=== PATIENT | female | born 1990 | race Caucasian/White ===

== ENCOUNTER 2024-12-02 13:41 | Emergency (ER) | payer BC, SELFPAY ==
--- NOTE | ~2024-12-02 | CT_ITS ---
CLINICAL HISTORY: flank pain CT abdomen and pelvis without contrast Comparison: None Findings: The lung bases are clear. The gallbladder and solid organs are within normal limits. No renal stones. No bowel obstruction, pneumoperitoneum, or pneumatosis. Pelvic contents unremarkable. Normal appendix. The bones are intact. IMPRESSION: No acute findings. This document has been electronically signed by: Mani Quinones MD on 12/02/2024 21:52:15
[2024-12-02 15:20] VITALS: BP 111/62; PULSE 92; RESP 20; TEMP 36.8; O2SAT 98; BMI 34.6
--- NOTE | 2024-12-02 15:27 | ED_ITS ---
HPI - General Adult General Chief complaint: General Medical Stated complaint: flank pain Time Seen by Provider: 12/02/24 20:07 Source: patient, RN notes reviewed and old records reviewed Mode of arrival: ambulatory Limitations: no limitations History of Present Illness ED Provider: Yamileth BRIAN narrative: 34-year-old otherwise healthy female presenting with a 6 days of bilateral flank pain that is worsening. Patient reports she went to urgent care on Tuesday and that they advised her to come to the emergency department because they were suspicious of kidney stones. Reports the both sides began hurting at the same time. States her pain feels ?internal? versus muscular. Reports nausea, but denies vomiting, fevers, chills, urinary frequency, burning micturition, an abdominal pain. Reports her flank pain currently as a 5/10, states it can get up to an 8/10. Patient reports she has tried Tylenol and ibuprofen with mild improvement. Patient also reports increasing her fluid intake. Denies history of kidney stones Related Data Previous Rx's ?Medication ?Instructions ?Recorded docusate sodium 250 mg capsule 250 mg PO BID PRN constipation #20 12/02/24 caps polyethylene glycol 3350 17 17 g PO DAILY 2 weeks #238 grams 12/02/24 gram/dose oral powder (Miralax) Allergies Allergy/AdvReac Type Severity Reaction Status Date / Time acetaminophen [From Vicodin] Allergy Hives Verified 12/02/24 15:22 hydrocodone [From Vicodin] Allergy Hives Verified 12/02/24 15:22 Review of Systems 2 Constitutional: Constitutional: Denies chills and Denies fever(s) Cardiovascular: Cardiovascular: Denies chest pain and Denies dyspnea Respiratory: Respiratory: Denies cough and Denies dyspnea Gastrointestinal: Gastrointestinal: Denies abdominal pain, Denies constipation, Denies diarrhea, Reports nausea and Denies vomiting Genitourinary: Genitourinary: Denies hematuria, Denies difficulty voiding, Denies dysuria and Reports flank pain (bilateral) [facility] Social History Social History Alcohol intake: current Alcohol intake frequency: holidays/special occasions only Physical Exam ED Vital Signs: Vital Signs - 24 hr 12/02/24 15:20 12/02/24 18:14 12/02/24 19:45 Temperature 98.2 F 98.1 F 98.0 F Pulse Rate 92 82 81 Respiratory Rate 20 20 16 Blood Pressure 111/62 116/64 103/57 L Pulse Oximetry 98 98 100 Oxygen Delivery Method Room Air Room Air Room Air 12/02/24 22:00 12/02/24 22:24 Temperature 98.2 F Pulse Rate 95 95 Respiratory Rate 18 18 Blood Pressure 108/49 L 108/49 L Pulse Oximetry 99 99 Oxygen Delivery Method Room Air Room Air BMI result Body Mass Index 34.6 Const General: cooperative, healthy appearing, comfortable and no acute distress HENMT Head: Yes normocephalic and Yes atraumatic Resp Effort & Inspection: normal respiratory effort and able to speak in complete sentences GI Inspection: No distended Palpation (GI): Soft to palpation and nontender General: Yes CVA tenderness (right side pain > left) bilateral Back/Spine/Pelvis Back: CVA tenderness (right side pain > left) Course Course Course Narrative: RME: 34 yold female sent from urgent care for bilateral flank pain for the past 6 days. patient denies any nausea, or genitourinary symptoms. Positive for bilateral flank pain. Labs UA ordered. Reevaluation(s) Reevaluation #1: Patient's workup was significant for moderate constipation next past can, no obstructive or infectious process there was no obstructive uropathy. I discussed this with the patient, we will start her on MiraLax and Colace. The patient will follow up with the primary doctor Time: 22:06 Medications Administered Discontinued Medications Generic Name Dose Route Start Last Admin Trade Name Freq PRN Reason Stop Dose Admin Sodium Chloride 1,000 mls @ 999 mls/hr 12/02/24 20:30 12/02/24 22:31 Ns IV 12/02/24 21:30 Infused .Q1H1M JOSE LUIS Infusion Ibuprofen 800 mg 12/02/24 17:27 12/02/24 20:06 Ibuprofen 800 Mg Tablet PO 12/02/24 17:28 Not Given ONCE ONE Ketorolac Tromethamine 15 mg 12/02/24 20:21 12/02/24 21:12 Ketorolac Tromethamine 15 Mg/Ml Vial IVPUSH 12/02/24 20:22 15 mg ONCE ONE Administration Ondansetron HCl 4 mg 12/02/24 20:21 12/02/24 21:13 Ondansetron Hcl 4 Mg/2 Ml Vial IVPUSH 12/02/24 20:22 4 mg ONCE ONE Administration Medical Decision Making Medical Decision Making [facility] Narrative: 34-year-old female presents for evaluation of bilateral flank pain for the last 6 days. She does have red blood cells detected in her urine. She has no history of kidney stones, we had a CT scan of the abdomen pelvis to evaluate for obstructive uropathy. Her urinalysis did not show any signs of infection. Also in the differential includes constipation, muscle strain. Toradol, fluids, Zofran in the meantime. Awaiting CT scan Differential Diagnosis Differential Diagnoses: The differential diagnosis associated with the presentation includes Kidney stones Pyelonephritis Constipation Urinary tract infection Muscle strain Lab Data [facility] Lab Attestation statement: I reviewed the patient's lab results. No leukocytosis. The patient has a mild anemia of unclear chronicity. This is a normocytic anemia. The patient is not actively bleeding. No significant chemistry abnormalities. 12/02/24 15:50 12/02/24 15:50 Labs: Lab Results 12/02/24 12/02/24 Range/Units 15:50 17:26 WBC 9.4 (4.8-10.8) X10*3/uL RBC 3.91 L (4.20-5.50) X10*6/uL Hgb 11.5 L (12.0-16.0) g/dl Hct 34.4 L (37.0-47.0) % MCV 88.0 (80.0-98.0) fL MCH 29.4 (27.0-33.0) pg MCHC 33.4 (31.0-35.0) g/dl RDW 12.5 (11.0-16.0) % Plt Count 297 (160-400) X10*3/uL MPV 10.2 (9.4-12.3) fL Immature Gran % (Auto) 1.0 H (0.0-0.4) % Neut % (Auto) 69.7 (45-73) % Lymph % (Auto) 20.6 (20-40) % Tama % (Auto) 6.8 (2-11) % Eos % (Auto) 1.4 (0-4) % Baso % (Auto) 0.5 (0-2) % Lymph # (Auto) 1.9 (1.2-4.9) X10*3/uL Tama # (Auto) 0.6 (0.1-1.2) X10*3/uL Eos # (Auto) 0.1 (0.0-0.4) X10*3/uL Baso # (Auto) 0.1 (0.0-0.2) X10*3/uL Abs Immat Gran (auto) 0.09 H (0.00-0.03) X10*3/uL Absolute Neuts (auto) 6.6 (2.0-8.3) x10*3/uL Absolute Nucleated RBC 0.000 (0.0-0.012) X10*3/uL Nucleated RBC % (auto) 0.0 (0.0-0.2) /100WBC PT 11.7 (10.9-12.4) SEC INR 1.0 (0.9-1.1) APTT 35.6 (26.0-36.8) SEC Sodium 140 (135-145) mmol/L Potassium 4.2 (3.3-5.1) mmol/L Chloride 107 (96-108) mmol/L Carbon Dioxide 26 (22-29) mmol/L Anion Gap 11 L (12-20) BUN 10 (9-16) mg/dL Creatinine 0.86 (0.5-1.4) mg/dL Estim Creat Clear Calc 97.3 Estimated GFR > 60 Random Glucose 94 (60-115) mg/dL Calcium 9.5 (8.4-10.2) mg/dL Total Bilirubin 0.4 (0.0-1.0) mg/dL AST 21 (5-31) U/L ALT 19 (0-31) U/L Alkaline Phosphatase 64 (39-117) U/L Total Protein 7.5 (6.5-8.0) g/dL Albumin 4.4 (3.5-5.0) g/dL Beta HCG, Quant < 2 mIU/mL Urine Color Yellow Urine Appearance Clear Urine pH 6.0 (5.0-9.0) Ur Specific [place] 1.020 (1.005-1.025) Urine Protein Negative (Neg-Trace) mg/dL Urine Glucose (UA) Negative (Negative) mg/dL Urine Ketones Negative (Negative) mg/dL Urine Blood Trace (Negative) Urine Nitrite Negative (Negative) Ur Leukocyte Esterase Negative (Negative) Urine RBC 3-5 H (0-2) /HPF Urine WBC 0-5 (0-5) /HPF Ur Squamous Epith Cells 3-5 (0-2) /HPF Urine Bacteria None Seen (None Seen) Hyaline Casts 0-2 (0-2) /LPF Influenza Type A (PCR) NEGATIVE (Negative) Influenza Type B (PCR) NEGATIVE (Negative) RSV RNA Qual (PCR) NEGATIVE (Negative) SARS-CoV-2 RNA (RT-PCR) NEGATIVE (Negative) Independent Interpretation I performed an independent interpretation of an: CT Scan (Moderate stool burden without obstruction) Radiology Impression Discussion of test interpretation with radiology: I have reviewed the radiologist's reading. Radiologist Impression: Findings: The lung bases are clear. The gallbladder and solid organs are within normal limits. No renal stones. No bowel obstruction, pneumoperitoneum, or pneumatosis. Pelvic contents unremarkable. Normal appendix. The bones are intact. IMPRESSION: No acute findings. This document has been electronically signed by: Mani Quinones MD on 12/02/2024 21:52:15 Discharge Plan Discharge Clinical Impression: Back pain, Constipation Patient Disposition: Home, Self-Care Instructions: Constipation (ED), Back Pain (ED) Additional Instructions: Your workup in the ER today was significant for constipation on her CT scan. There was no evidence of kidney stones There was a small/trace amount of blood in your urine. This may be related to your recent menstrual cycle I recommend that you take MiraLax every night for the next 2 weeks Take Colace as directed I recommend that you increase fluid and fiber intake in your diet Prescriptions: New docusate sodium 250 mg capsule 250 mg PO BID PRN (Reason: constipation) Qty: 20 0RF polyethylene glycol 3350 [Miralax] 17 gram/dose powder 17 g PO DAILY 14 Days Qty: 238 0RF Stand Alone Forms: Work/School Release Interventions: ED Discharge Assessment Last Done: 12/02/24 22:24 Discharge Date/Time: 12/02/24 22:34 Print Language: Tajik
[2024-12-02 15:55] LABS: MANUAL DIFF FLAG NO
[2024-12-02 16:10] LABS: Anion Gap 11 (12-20)
[2024-12-02 16:12] LABS: Prothrombin Time 11.7 SEC (10.9-12.4)
[2024-12-02 16:15] LABS: Partial Thromboplastin Time 35.6 SEC (26.0-36.8)
[2024-12-02 16:16] LABS: Alanine Aminotransferase 19 U/L (0-31); Albumin Level 4.4 g/dL (3.5-5.0); Aspartate Amino Transferase 21 U/L (5-31); Bilirubin Total 0.4 mg/dL (0.0-1.0); Blood Urea Nitrogen 10 mg/dL (9-16); Calcium 9.5 mg/dL (8.4-10.2); Carbon Dioxide 26 mmol/L (22-29); Chloride 107 mmol/L (96-108); Creatinine Clr Calc Pharmacy 97.3; Estimated Glomerular Filt Rate > 60; Glucose Random 94 mg/dL (60-115); Potassium 4.2 mmol/L (3.3-5.1); Sodium 140 mmol/L (135-145); Total Protein 7.5 g/dL (6.5-8.0)
[2024-12-02 16:18] LABS: Basophils Absolute Auto 0.1 X10*3/uL (0.0-0.2); Basophils Percent Auto 0.5 % (0-2); Eosinophils Absolute Auto 0.1 X10*3/uL (0.0-0.4); Eosinophils Percent Auto 1.4 % (0-4); Hematocrit 34.4 % (37.0-47.0); Hemoglobin 11.5 g/dl (12.0-16.0); Imm Gran Abs Auto 0.09 X10*3/uL (0.00-0.03); Lymphocytes Absolute Auto 1.9 X10*3/uL (1.2-4.9); Lymphocytes Percent Auto 20.6 % (20-40); Mean Corpuscular HGB Conc 33.4 g/dl (31.0-35.0); Mean Corpuscular Hemoglobin 29.4 pg (27.0-33.0); Mean Platelet Volume 10.2 fL (9.4-12.3); Monocytes Absolute Auto 0.6 X10*3/uL (0.1-1.2); Monocytes Percent Auto 6.8 % (2-11); Neutrophils Absolute Auto 6.6 x10*3/uL (2.0-8.3); Neutrophils Percent Auto 69.7 % (45-73); Platelet Count 297 X10*3/uL (160-400); Red Blood Count 3.91 X10*6/uL (4.20-5.50); Red Cell Distribution Width 12.5 % (11.0-16.0); White Blood Count 9.4 X10*3/uL (4.8-10.8)
[2024-12-02 16:20] LABS: HCG Quantitative < 2 mIU/mL
[2024-12-02 16:26] LABS: Alkaline Phosphatase 64 U/L (39-117)
[2024-12-02 16:50] LABS: Influenza A PCR NEGATIVE (Negative); Influenza B PCR NEGATIVE (Negative); Resp Syncy Virus RNA Qual PCR NEGATIVE (Negative); SARS COV2 PCR INHOUSE NEGATIVE (Negative)
[2024-12-02 17:36] LABS: Appearance Urine Clear; Color Urine Yellow; Glucose Urine UA Negative (Negative); Leukocyte Esterase Urine Negative (Negative); Nitrite Urine Negative (Negative); UMIC TRIGGER UACC YES; Urine Blood Trace (Negative); Urine Ketones Negative (Negative); Urine Protein Negative (Neg-Trace)
[2024-12-02 17:51] LABS: Bacteria Urine None Seen (None Seen); Hyaline Casts Urine 0-2 /LPF (0-2); WBC Urine 0-5 /HPF (0-5)
[2024-12-02 18:14] VITALS: BP 116/64; PULSE 82; RESP 20; TEMP 36.7; O2SAT 98
[2024-12-02 19:45] VITALS: BP 103/57; PULSE 81; RESP 16; TEMP 36.7; O2SAT 100
[2024-12-02] MEDS: Ketorolac Tromethamine 15 MG/ML VIAL IVPUSH (21:12)
[2024-12-02] MEDS: ondansetron HCL 4 MG/2 ML VIAL IVPUSH (21:13)
[2024-12-02] MEDS: 0.9 % Sodium Chloride 1,000 ML 999 ML IV (21:15)
[2024-12-02 22:00] VITALS: BP 108/49; PULSE 95; RESP 18; O2SAT 99
[2024-12-02 22:24] VITALS: BP 108/49; PULSE 95; RESP 18; TEMP 36.8; O2SAT 99
== END 2024-12-02 22:34 | disposition home or self-care (01) ==
PROVIDERS: Physician Assistant; Emergency Provider Emergency Medicine Emergency Medical Services; PCP Family Medicine
DX: R10.2 Pelvic and perineal pain (principal); R11.0 Nausea; K59.00 Constipation, unspecified; Z03.818 Encounter for observation for suspected exposure to other biological agents ruled out; Z79.899 Other long term (current) drug therapy
CPT/HCPCS: 0241U; 74176; 80053; 81001; 84702; 85025; 85610; 85730; 96361; 96374; 96375; 99284; J1885; J2405

== ENCOUNTER → 2024-12-02 20:55 | Outpatient (BNV) | payer BC, SELFPAY | PROVIDERS: Emergency Provider Emergency Medicine Emergency Medical Services; PCP Family Medicine; Visit Provider Radiology Diagnostic Radiology | DX: R10.9 Unspecified abdominal pain (principal) | CPT/HCPCS: 74176 ==